=== PATIENT | female | born 1965 | race Caucasian/White ===

== ENCOUNTER 2019-11-28 08:23 | Emergency (ER) | payer OTHER ==
[2019-11-28 08:29] VITALS: BP 144/86
[2019-11-28] MEDS ORDERED: IBUPROFEN 600 MG TAB PO ONE (08:45)
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
== END 2019-11-28 09:11 | disposition home or self-care (01) ==
LOC: ED 08:23
DX: R07.89 Other chest pain (principal); M13.88 Other specified arthritis, other site; E11.9 Type 2 diabetes mellitus without complications; Z85.3 Personal history of malignant neoplasm of breast; Z88.4 Allergy status to anesthetic agent; V89.2XXA Person injured in unspecified motor-vehicle accident, traffic, initial encounter; Y93.89 Activity, other specified; Y92.410 Unspecified street and highway as the place of occurrence of the external cause; Y99.8 Other external cause status
CPT/HCPCS: 99283